=== PATIENT | male | born 1935 | race Caucasian/White ===

== ENCOUNTER → 2016-08-13 | Outpatient (CLI) | payer MEDICARE, OTHER ==
[~2016-08-13] VITALS: Ht 180.3 cm; Wt 99.9 kg
[~2016-08-13] MED LIST: BACTROBAN22 TOP; CRESTOR5 MG PO; CUTIVATE30 GM TOP; DESOWEN0.05% TOP; EXFORGE 10 MG-31 TAB PO; FLUOROPLEX1% TP; HYTRIN 2MG CAPSU2 MG PO; METROGEL1% TOP; MOTRIN 200200 MG/TAB PO; PLAVIX 75MG TAB75 MG PO; PROSCAR 5MG5 MG PO
[2016-08-13 09:09] VITALS: BP 159/53; PULSE 51
[2016-08-13 11:02] VITALS: BP 161/71; PULSE 52
== END ==
LOC: COL.RAD 08:37
DX: C73 Malignant neoplasm of thyroid gland (principal); E04.1 Nontoxic single thyroid nodule
CPT/HCPCS: 13756; 25581

== ENCOUNTER 2016-08-26 15:36 | Inpatient (IN) | payer MEDICARE, OTHER ==
[~2016-08-26] VITALS: Ht 180.3 cm; Wt 98.2 kg
[~2016-08-26 15:36] MED LIST changes: -BACTROBAN22 TOP; -CUTIVATE30 GM TOP; -DESOWEN0.05% TOP; -FLUOROPLEX1% TP; -METROGEL1% TOP; -MOTRIN 200200 MG/TAB PO
[2016-09-14] VITALS (10 sets, daily range): BP systolic 131–165; BP diastolic 46–74; PULSE 52–93; TEMP 98–98.1
[2016-09-14] MEDS ORDERED: DESOWEN0.05% TOP (11:34)
[2016-09-14] MEDS ORDERED: FLUOROPLEX1% TP (11:35)
[2016-09-14] MEDS ORDERED: CUTIVATE30 GM TOP (11:36)
[2016-09-14] MEDS ORDERED: METROGEL1% TOP (11:40)
[2016-09-14] MEDS ORDERED: BACTROBAN22 TOP (11:42)
[2016-09-14] MEDS ORDERED: MOTRIN 200200 MG/TAB PO (12:10)
[2016-09-15 00:25] VITALS: BP 155/55; PULSE 62; TEMP 98.2
[2016-09-15 04:53] VITALS: BP 149/56; PULSE 79; TEMP 98.2
[2016-09-15 09:36] VITALS: BP 131/43; PULSE 64; TEMP 98.9
[2016-09-15 13:38] VITALS: BP 133/51; PULSE 54; TEMP 98
== END 2016-09-15 17:00 | disposition home or self-care (01) | DRG 627 ==
LOC: INPTSU 09-14 09:40 → SURG 09-14 12:00
PROVIDERS: Surgery
PROC: 07B10ZX Excision of Right Neck Lymphatic, Open Approach, Diagnostic (ICD-10-PCS; 2016-09-14)
PROC: 0GTK0ZZ Resection of Thyroid Gland, Open Approach (ICD-10-PCS; principal; 2016-09-14 12:00)
DX: C73 Malignant neoplasm of thyroid gland (principal); E04.2 Nontoxic multinodular goiter; Z87.891 Personal history of nicotine dependence; I25.10 Atherosclerotic heart disease of native coronary artery without angina pectoris
CPT/HCPCS: J0690; J1100; J2370; J2405; J2704; J3010; J7120